=== PATIENT | female | born 1930 | race Caucasian/White ===

== ENCOUNTER 2017-05-16 17:34 | Emergency (ER) | payer OTHER, BC ==
[~2017-05-16] VITALS: Ht 167.6 cm; Wt 75.6 kg
[~2017-05-16 17:34] MED LIST: ACETAMINOPHEN500 MG PO; ASPIRIN81 M2 PO; DAILY VALUE1 EACH PO; EYE DROP; LIPITOR20 MG PO; LIPITOR40 MG PO; PRESERVISIO1 CAPSULE PO
[2017-05-16 21:31] VITALS: BP 149/81
== END 2017-05-16 21:32 | disposition home or self-care (01) ==
LOC: EME 17:34
DX: S50.861A Insect bite (nonvenomous) of right forearm, initial encounter (principal); W57.XXXA Bitten or stung by nonvenomous insect and other nonvenomous arthropods, initial encounter
CPT/HCPCS: 99281; 99283

== ENCOUNTER 2018-03-15 00:18 | Emergency (ER) | payer OTHER, BC ==
[~2018-03-15] VITALS: Ht 167.6 cm; Wt 75.3 kg
[2018-03-15 00:50] LABS: HEMATOCRIT 42.3 % (36.0-46.0); MCH 31.3 PG (29.0-34.0); MCHC 33.1 G/DL (30.0-36.0); MCV 94.4 FL (83-99); PLATELET COUNT 152 K/uL (156-360); RBC DIS.WIDTH-CV 13.8 % (11.8-14.6); RBC DIS.WIDTH-SD 48.1 % (39-53); RED BLOOD COUNT 4.48 M/uL (3.80-5.20); WHITE BLOOD COUNT 5.7 K/uL (4.1-10.2)
[2018-03-15 01:00] LABS: ALBUMIN 4.4 g/dL (3.2-4.8); CHLORIDE 105 mEq/L (99-109); SODIUM 143 mEq/L (136-147)
[2018-03-15 01:02] LABS: GLUCOSE 137 mg/dL (70-99); TOTAL PROTEIN 7.8 g/dL (6.4-8.3)
[2018-03-15 01:04] LABS: TOTAL BILIRUBIN 0.5 mg/dL (0.0-1.0)
[2018-03-15 01:06] LABS: ALKALINE PHOSPHATASE 98 IU/L (3-129); CREATININE 0.8 mg/dL (0.6-1.3); GFR ESTIMATE (CALCULATED) > 59 mL/min/
[2018-03-15 01:07] LABS: UREA NITROGEN (BUN) 11 mg/dL (9-23)
[2018-03-15 01:08] LABS: AST (GOT) 27 IU/L (2-34); DIRECT BILIRUBIN 0.2 mg/dL (0.0-0.3)
[2018-03-15 01:09] LABS: ALT (GPT) 24 IU/L (3-49)
[2018-03-15 01:46] LABS: TROP-I INTERPRETATION NEGATIVE; TROPONIN-I 0.01 ng/mL (0.0-0.30)
[2018-03-15 02:53] VITALS: BP 139/74
== END 2018-03-15 02:55 | disposition home or self-care (01) ==
LOC: EME 00:18
PROVIDERS: Emergency Medicine
DX: F41.9 Anxiety disorder, unspecified (principal); E78.5 Hyperlipidemia, unspecified; Z79.82 Long term (current) use of aspirin
CPT/HCPCS: 80053; 81003; 82248; 84484; 85027; 93005; 99281; 99283